=== PATIENT | female | born 1985 | race Caucasian/White ===

== ENCOUNTER 2017-01-02 18:19 | Emergency (ER) | payer MEDICAID ==
[2017-01-02 19:17] LABS: BASOPHIL % 0.7 % (0-2); PLATELET COUNT 261 x10^3mcL (130-400)
[2017-01-02 19:18] LABS: RED CELL DISTRIBUTION WIDTH 14.6 % (11.5-14.5)
[2017-01-02 19:28] LABS: CALCIUM 8.9 mg/dL (8.5-10.1); CARBON DIOXIDE 25.7 mmol/L (21-32); CHLORIDE SERUM 103 mmol/L (98-107); CREATININE SERUM 0.8 mg/dL (0.6-1.0); GFR1 > 60 mL/min; GLUCOSE SERUM 94 mg/dL (74-106); POTASSIUM SERUM 3.5 mmol/L (3.5-5.1); SODIUM SERUM 137 mmol/L (136-145)
[2017-01-02 19:32] LABS: ALBUMIN 4.3 g/dL (3.4-5.0); ALKALINE PHOSPHATASE 62 U/L (46-116); ALT/SGPT 16 U/L (14-59); AST/SGOT 14 U/L (15-37); BILIRUBIN TOTAL 0.3 mg/dL (0.20-1.00)
[2017-01-02 20:59] VITALS: BP 103/64
== END 2017-01-02 20:59 | disposition home or self-care (01) ==
LOC: ED 18:19
PROVIDERS: Emergency Medicine
DX: R20.9 Unspecified disturbances of skin sensation (principal)
CPT/HCPCS: 36415; J1885

== ENCOUNTER 2017-01-10 20:39 | Emergency (ER) | payer MEDICAID ==
[2017-01-10 21:56] VITALS: BP 95/60
== END 2017-01-10 22:57 | disposition home or self-care (01) ==
LOC: ED 20:39
DX: M54.12 Radiculopathy, cervical region (principal); N39.0 Urinary tract infection, site not specified
CPT/HCPCS: 82962; J1100; J1885; Q0162

== ENCOUNTER 2017-07-06 19:13 | Emergency (ER) | payer MEDICAID ==
[2017-07-06 23:37] LABS: BASOPHIL % 0.5 % (0-2); PLATELET COUNT 230 x10^3mcL (130-400); RED CELL DISTRIBUTION WIDTH 15.3 % (11.5-14.5)
[2017-07-06 23:38] LABS: CALCIUM 8.6 mg/dL (8.5-10.1); CARBON DIOXIDE 27.3 mmol/L (21-32); CHLORIDE SERUM 105 mmol/L (98-107); CREATININE SERUM 0.7 mg/dL (0.6-1.0); GFR1 > 60 mL/min; GLUCOSE SERUM 93 mg/dL (74-106); POTASSIUM SERUM 3.5 mmol/L (3.5-5.1); SODIUM SERUM 139 mmol/L (136-145)
[2017-07-06 23:43] LABS: ALBUMIN 3.6 g/dL (3.4-5.0); ALKALINE PHOSPHATASE 56 U/L (46-116); ALT/SGPT 21 U/L (14-59); AST/SGOT 17 U/L (15-37); BILIRUBIN TOTAL 0.3 mg/dL (0.20-1.00)
[2017-07-07 00:53] VITALS: BP 104/69
== END 2017-07-07 00:53 | disposition home or self-care (01) ==
LOC: ED 19:13
PROVIDERS: Emergency Medicine
DX: N93.9 Abnormal uterine and vaginal bleeding, unspecified (principal); R10.30 Lower abdominal pain, unspecified; R10.13 Epigastric pain
CPT/HCPCS: J1885; J7030; J7040

== ENCOUNTER 2017-09-05 11:38 | Emergency (ER) | payer MEDICAID ==
[~2017-09-05] VITALS: Ht 154.9 cm; Wt 66.7 kg
[2017-09-05 11:44] VITALS: Ht 154.9 cm; Wt 66.7 kg
[2017-09-05 14:58] VITALS: BP 117/62
== END 2017-09-05 14:58 | disposition home or self-care (01) ==
LOC: ED 11:38
DX: L02.212 Cutaneous abscess of back [any part, except buttock and flank] (principal)
CPT/HCPCS: J2001

== ENCOUNTER 2017-09-07 10:36 | Emergency (ER) | payer MEDICAID ==
[~2017-09-07] VITALS: Ht 154.9 cm; Wt 64.0 kg
[2017-09-07 10:45] VITALS: BP 116/57; Ht 154.9 cm; Wt 64.0 kg
== END 2017-09-07 11:38 | disposition home or self-care (01) ==
LOC: ED 10:36
DX: Z48.01 Encounter for change or removal of surgical wound dressing (principal); F41.9 Anxiety disorder, unspecified

== ENCOUNTER 2018-01-21 21:03 | Emergency (ER) | payer MEDICAID ==
[~2018-01-21] VITALS: Ht 154.9 cm; Wt 59.1 kg
[2018-01-21 21:22] VITALS: Ht 154.9 cm; Wt 59.1 kg
[2018-01-21 21:58] LABS: BASOPHIL % 0.4 % (0-2); PLATELET COUNT 245 x10^3mcL (130-400); RED CELL DISTRIBUTION WIDTH 15.8 % (11.5-14.5)
[2018-01-21 22:21] LABS: CALCIUM 8.9 mg/dL (8.5-10.1); CARBON DIOXIDE 26.6 mmol/L (21-32); CHLORIDE SERUM 104 mmol/L (98-107); CREATININE SERUM 0.7 mg/dL (0.6-1.0); GFR1 > 60 mL/min; GLUCOSE SERUM 92 mg/dL (74-106); SODIUM SERUM 139 mmol/L (136-145)
[2018-01-21 22:25] LABS: ALBUMIN 4.1 g/dL (3.4-5.0); ALKALINE PHOSPHATASE 51 U/L (46-116); ALT/SGPT 22 U/L (14-59); AST/SGOT 19 U/L (15-37); BILIRUBIN TOTAL 0.35 mg/dL (0.20-1.00); LIPASE 143 IU/L (73-393); TOTAL PROTEIN, SERUM 7.6 g/dL (6.4-8.2)
[2018-01-21 22:35] LABS: microscopic required? YES; urine erythrocyte 2+ (NEGATIVE)
[2018-01-21 23:54] VITALS: BP 110/76
== END 2018-01-21 23:54 | disposition home or self-care (01) ==
LOC: ED 21:03
PROVIDERS: Emergency Medicine
DX: N83.201 Unspecified ovarian cyst, right side (principal)
CPT/HCPCS: 36415; Q0092

== ENCOUNTER 2018-07-13 14:47 | Emergency (ER) | payer MEDICAID ==
[~2018-07-13] VITALS: Ht 157.5 cm; Wt 60.8 kg
[2018-07-13 14:52] VITALS: BP 108/62; Ht 157.5 cm; Wt 60.8 kg
== END 2018-07-13 15:46 | disposition home or self-care (01) ==
LOC: ED 14:47
DX: N39.0 Urinary tract infection, site not specified (principal); F41.9 Anxiety disorder, unspecified

== ENCOUNTER 2018-10-21 08:15 | Emergency (ER) | payer BC ==
[~2018-10-21] VITALS: Ht 157.5 cm; Wt 57.6 kg
[2018-10-21 08:28] VITALS: Ht 157.5 cm; Wt 57.6 kg
[2018-10-21 10:00] VITALS: BP 104/72
== END 2018-10-21 10:00 | disposition home or self-care (01) ==
LOC: ED 08:15
DX: M94.0 Chondrocostal junction syndrome [Tietze] (principal); F41.9 Anxiety disorder, unspecified; Z98.890 Other specified postprocedural states
CPT/HCPCS: J1885; Q0092

== ENCOUNTER 2020-03-10 09:52 | Emergency (ER) | payer MEDICAID ==
[~2020-03-10] VITALS: Ht 157.5 cm; Wt 63.0 kg
[2020-03-10 09:56] VITALS: Ht 157.5 cm; Wt 63.0 kg
[2020-03-10 10:56] VITALS: BP 99/67
== END 2020-03-10 10:56 | disposition home or self-care (01) ==
LOC: ED 09:52
DX: R07.89 Other chest pain (principal); M25.511 Pain in right shoulder; M25.512 Pain in left shoulder; M54.9 Dorsalgia, unspecified; Z98.890 Other specified postprocedural states